=== PATIENT | male | born 1965 | race Caucasian/White ===

== ENCOUNTER 2021-08-16 12:24 | Day surgery (SDC) | payer OTHER ==
[~2021-08-16] VITALS: Ht 165.1 cm; Wt 145.0 kg
[2021-08-16] MEDS ORDERED: LISI20 (12:54)
== END 2021-08-16 14:52 | disposition home or self-care (01) ==
LOC: ORSCSDS 12:24
PROVIDERS: Internal Medicine Gastroenterology
PROC: 0DBH8ZX Excision of Cecum, Via Natural or Artificial Opening Endoscopic, Diagnostic (ICD-10-PCS; principal; 2021-08-16 13:45)
PROC: 0DBE8ZX Excision of Large Intestine, Via Natural or Artificial Opening Endoscopic, Diagnostic (ICD-10-PCS; principal; 2021-08-16 13:45)
PROC: 0DBM8ZX Excision of Descending Colon, Via Natural or Artificial Opening Endoscopic, Diagnostic (ICD-10-PCS; principal; 2021-08-16 13:45)
DX: R19.4 Change in bowel habit (principal); Z86.010 Personal history of colon polyps; I10 Essential (primary) hypertension; D12.0 Benign neoplasm of cecum; D12.4 Benign neoplasm of descending colon; Z79.899 Other long term (current) drug therapy
CPT/HCPCS: 88305; J2704; J7120